=== PATIENT | male | born 1965 | race Caucasian/White ===

== ENCOUNTER 2020-08-03 14:15 | Emergency (ER) | payer OTHER ==
[~2020-08-03] VITALS: Wt 118.6 kg
[2020-08-03] MEDS ORDERED: MOBIC7.5 MG (14:24)
[2020-08-03 15:42] LABS: EOS # 0.2 (0.04-0.40); EOS % 2.2 % (0.0-4.0); HEMATOCRIT 40.1 % (42.0-52.0); HEMOGLOBIN 13.4 g/dL (13.5-18.0); LYMPH# 1.6 (1.50-4.00); MEAN CELL VOLUME 93 fl (78-100); MEAN CORPUSCULAR HEMOGLOBIN 31 pg (27-31); MEAN CORPUSCULAR HGB CONC 33 g/dL (33-37); MEAN PLATELET VOLUME 8.9 fl (7.4-10.4); MONO # 0.7 (0.20-0.80); NEU # 5.3 (1.40-6.50); PLATELET COUNT 157 K/mm3 (130-400); RED CELL DISTRIBUTION WIDTH 13.2 % (11.5-14.5); WHITE BLOOD COUNT 7.9 K/mm3 (4.8-10.8)
[2020-08-03 15:52] LABS: ALBUMIN 4.4 g/dL (3.5-5.0)
[2020-08-03 15:53] LABS: POTASSIUM 4.7 mmol/L (3.5-5.1)
[2020-08-03 15:54] LABS: CALCIUM 8.9 mg/dL (8.3-10.5)
[2020-08-03 15:55] LABS: TOTAL PROTEIN 7.1 g/dL (6.4-8.3)
[2020-08-03 15:57] LABS: TOTAL BILIRUBIN 0.4 mg/dL (0.2-1.2)
[2020-08-03 16:06] LABS: PROTHROMBIN TIME 9.9 SECONDS (9.0-12.0)
[2020-08-03] MEDS ORDERED: ELIQUIS5 M1 PO (16:20)
[2020-08-03 17:02] VITALS: BP 122/86
== END 2020-08-03 16:44 | disposition home or self-care (01) ==
LOC: ED 14:15
PROVIDERS: Nurse Practitioner Family
DX: I82.462 Acute embolism and thrombosis of left calf muscular vein (principal)

== ENCOUNTER → 2020-08-03 | Outpatient (CLI) | payer OTHER ==
[~2020-08-03] MED LIST: ELIQUIS5 M1 PO; MOBIC7.5 MG
== END ==
LOC: VAS 13:23
DX: I82.462 Acute embolism and thrombosis of left calf muscular vein (principal)

== ENCOUNTER → 2021-06-19 | Outpatient (CLI) | payer BC | LOC: RAD 14:00 | DX: M50.30 Other cervical disc degeneration, unspecified cervical region (principal); M48.02 Spinal stenosis, cervical region | CPT/HCPCS: Q9967 ==